=== PATIENT | female | born 1990 | race Hispanic/Latino ===

== ENCOUNTER 2018-02-16 10:04 | Inpatient (IN) | payer MEDICAID, SELFPAY ==
[2018-02-16] MEDS ORDERED: Oxytocin 10 UNITS/ML VIAL ONE (10:16)
[2018-02-16 11:13] VITALS: BMI 33.6
[2018-02-16] MEDS ORDERED: Ondansetron HCl/PF 4 MG/2 ML Vial IVP PRN ×2 (11:16→13:53)
[2018-02-16] MEDS ORDERED: NS / Oxytocin 40 units/1000ml 1,000 ML IV PRN (11:16)
[2018-02-16] MEDS ORDERED: Docusate 100 MG CAP PO PRN (11:16)
[2018-02-16] MEDS ORDERED: Lidocaine 1% (PF) 30 ML VIAL SC PRN (11:16)
[2018-02-16] MEDS ORDERED: Promethazine HCl 25 MG/ML VIAL IM PRN ×2 (11:16→13:53)
[2018-02-16] MEDS ORDERED: Lactated Ringer's 1,000 ML IV SCH (11:16)
[2018-02-16] MEDS ORDERED: Acetaminophen 500 MG TAB PO PRN (11:16)
[2018-02-16 11:23] LABS: Hemoglobin 15.1 g/dL (12.0-16.0); Mean Corpuscular HGB CONC 35.3 g/dL (32.0-36.0); Mean Corpuscular Hemoglobin 32.8 pg (27.0-31.0); Mean Corpuscular Volume 92.9 fL (78.0-98.0); Mean Platelet Volume 7.9 fL (7.4-10.4); Platelet Count 174 thou/uL (130-400); RBC Distribution Width 11.9 % (11.5-14.5); Red Blood Cell (RBC) Count 4.59 mill/uL (4.20-5.40); White Blood Cell (WBC) Count 8.3 thou/uL (4.8-10.8)
[2018-02-16] MEDS ORDERED: Acetaminophen/Codeine 30-300mg Tablet PO SCH (11:45)
[2018-02-16] MEDS ORDERED: Ibuprofen 800 MG TAB PO SCH (11:45)
--- NOTE | 2018-02-16 11:45 | PDOC.FPRHP ---
- History of Present Illness Chief Complaint: LOF History of Present Illness: This is a 27 yo female at 39.2 wks who presents to L&D for a cc of LOF. She states that she lost fluids while sitting on the toilet. She was feeling lower abdominal pressure. Denies SOB, CP, or N/V. - Allergies/Adverse Reactions Allergies Allergy/AdvReac Type Severity Reaction Status Date / Time No Known Allergies Allergy Verified 02/16/18 11:14 - Home Medications Medication Instructions Recorded Confirmed Type No Known 02/16/18 02/16/18 History - History PMHx: PSHx: FHx: Social: - Vital signs BP: [] HR: [] RR: [] Tmax: [] Pox: []% on [] Wt: [] - Physical Exam Constitutional: NAD, awake, alert and oriented, well developed HEENT: normocephalic and atraumatic, MMM Neck: FROM Lungs: no respiratory distress Musculoskeletal: normal structure Skin: no rash/lesions Psychiatric: normal mood and affect, good judgment and insight, intact recent and remote memory Additional comment: Pt. was when first checked. FMR H&P: Results - Labs Result Diagrams: 02/16/18 10:25 Lab results: WBC 8.3 thou/uL (4.8-10.8) 02/16/18 10:25 Hgb 15.1 g/dL (12.0-16.0) 02/16/18 10:25 Hct 42.7 % (36.0-47.0) 02/16/18 10:25 MCV 92.9 fL (78.0-98.0) 02/16/18 10:25 Plt Count 174 thou/uL (130-400) 02/16/18 10:25 FMR H&P: A/P - Problem List (1) Term delivered Current Visit: Yes Status: Acute Code(s): O80 - ENCOUNTER FOR FULL-TERM UNCOMPLICATED DELIVERY - Plan This is a a 27 yo at 39.2 Term -Pt. is currently having contractions and baby's head is we will prepare for a precipitous delivery. We will establish IV access and provide fluids and oxytocin as soon as possible. FMR H&P: Upper Level - Plan Date/Time: 02/16/18 1144 I, [], have evaluated this patient and agree with findings/plan as outlined by international exchange coordinator resident. Pertinent changes/additions are listed here.
[2018-02-16 12:09] LABS: Syphilis Antibody Nonreactive (Nonreactive); Syphilis Antibody Index 0.06 S/CO (<1.00 Non-Reactive)
[2018-02-16 12:10] LABS: Hep B Surf Ag Non-Reactive S/CO (NonReactive)
--- NOTE | 2018-02-16 13:47 | PDOC.OPDEL ---
OB Operative/Delivery Note - Additional Findings/Plan Compilations/Other Findings: Delivering Physician: Dr. Lashawn Kaur, Dr. Tawanda Olvera Attending: Dr. Lashawn Kaur Procedure: Spontaneous Vaginal Delivery Anesthesia: none QBL: 84 ml Pre-op Diagnosis: 1. Term intrauterine in labor Post-op Diagnosis: 1. Term intrauterine , delivered Indications: A 27y/o female presents in active labor, head Delivery Note: This is 27yo F @ 39.2wks who delivered a viable M infant at 10:19. Following an uneventful antepartum course, a vigorous male was delivered over an intact perineum. Anterior Shoulder and then remainder of the body delivered. There was a reducible, loose nuchal cord x 1. The head was held down and mouth and nares were bulb suctioned. Cord clamped and cut and cord blood collected. Placenta delivered intact Pedroza presentation with a 3 vessel cord noted. Fundal massage was performed and the fundus was firm. The cervix and vagina were inspected and found to be free of lacerations. Infant went to nursery in good condition for routine care. Apgars were 8/9 at 1 & 5 minutes, respectively. Patient tolerated delivery well and went to after routine recovery/care. <Tawanda Olvera - Last Filed: 02/16/18 17:07> Attending Addendum - Attending Addendum Date/Time: 02/16/18 182 I was present and scrubbed for the uncomplicated, precipitous delivery of the vigorous male infant in cephalic presentation with a single, loose nuchal cord. Placenta delivered intact. Mom and baby doing well. <Lashawn Webber - Last Filed: 02/16/18 18:27>
[2018-02-16] MEDS ORDERED: Milk Of Magnesia 30 ML UDCUP PO PRN (13:53)
[2018-02-16] MEDS ORDERED: Preparation H Ointment 28 GM TUBE PR PRN (13:53)
[2018-02-16] MEDS ORDERED: Lanolin Ointment 7 GM TUBE TOP PRN (13:53)
[2018-02-16] MEDS ORDERED: NS / Oxytocin 40 units/1000ml 1,000 ML IV SCH (13:53)
[2018-02-16] MEDS ORDERED: Benzocaine/Menthol 20-0.5% 60 ML CAN TOP PRN (13:53)
[2018-02-16] MEDS ORDERED: Acetaminophen/Codeine 30-300mg Tablet PO PRN (13:53)
[2018-02-16] MEDS ORDERED: Adacel (T-DAP) 0.5 ML VIAL IM ONE (13:53)
[2018-02-16] MEDS ORDERED: Bisacodyl 10 MG SUPP PR PRN (13:53)
[2018-02-16] MEDS: Ibuprofen 800 MG TAB PO SCH ×2 (14:58→21:27)
[2018-02-16] MEDS: Ferrous Sulfate 325 MG TAB PO SCH (14:59)
--- NOTE | 2018-02-16 17:15 | PDOC.FPROB ---
FMR OB H&P: HPI - History of Present Illness Chief Complaint: Contractions History of Present Illness: This is a 27 yo female at 39.2 wks who presents to L&D for a cc of LOF. She states that she lost fluids while sitting on the toilet. She was feeling lower abdominal pressure. Denies SOB, CP, or N/V. FMR OB H&P: Current - Care : 3 Para: 1102 Gestational age: 39.2 Due date: 02/21/2018 Dating Criteria: 13.1 Course/Complications: None - OB Labs Blood type: A RH: positive Antibody Screen: negative HIV: negative RPR: negative HepBsAg: negative Rubella: immune Gonorrhea: negative Chlamydia: negative 1 hour gtt: 87 GBS: negative FMR OB H&P: History - OB History OB History: 1st baby delivered at 26wks in [place] 2nd baby delivered at 39 wks in [place] Both living - Social History Social History: Denies D/A/T FMR OB H&P: Medications - Current Home Medications: Medication Instructions Recorded Confirmed Type No Known 02/16/18 02/16/18 History Allergies/Adverse Reactions: Allergies Allergy/AdvReac Type Severity Reaction Status Date / Time No Known Allergies Allergy Verified 02/16/18 11:14 FMR OB H&P: ROS - Review of Systems General: reports: other (Unable to obtain ROS or majority of PE 2/2 to pt. delivering precipitously.) FMR OB H&P: Vital Signs - Maternal Vital signs: Vital Signs - First Documented Temp Pulse Resp BP 98.8 F 73 18 144/79 H 02/16/18 10:48 02/16/18 10:48 02/16/18 10:48 02/16/18 10:48 FMR OB H&P: Physical Exam - Physical Exam General: NAD, awake, alert and oriented HEENT: normocephalic and atraumatic, MMM Neck: FROM General: no respiratory distress Abdomen: soft, gravid FMR OB H&P: Results - Labs Lab results: Laboratory Results - last 24 hr 02/16/18 02/16/18 02/16/18 10:25 10:25 10:25 WBC RBC Hgb Hct MCV MCH MCHC RDW Plt Count MPV Syphilis IgG/IgM Ab Nonreactive Hep Bs Antigen Non-Reactive Blood Type A POSITIVE Antibody Screen NEGATIVE 02/16/18 10:25 WBC 8.3 RBC 4.59 Hgb 15.1 Hct 42.7 MCV 92.9 MCH 32.8 H MCHC 35.3 RDW 11.9 Plt Count 174 MPV 7.9 Syphilis IgG/IgM Ab Hep Bs Antigen Blood Type Antibody Screen FMR OB H&P: A/P - Problem List (1) Term delivered Current Visit: Yes Status: Acute Code(s): O80 - ENCOUNTER FOR FULL-TERM UNCOMPLICATED DELIVERY Assessment and Plan: This is a a 27 yo at 39.2 Term -Pt. is currently having contractions and baby's head is we will prepare for a precipitous delivery. We will establish IV access and provide fluids and oxytocin as soon as possible. Discussion: Date/Time: 02/16/181712 This H&P was discussed with Dr. Webber who agree with the above documentation and plan. Attending Addendum - Attending Addendum Date/Time: 02/16/181828 I personally evaluated the patient and discussed the management with Dr. Olvera. I agree with the History, Examination, Assessment and Plan documented above. 39 + weeks in active labor. SVE /3. Anticipate .
[2018-02-16] MEDS: Docusate Calcium (SURFAK) 240 MG CAP PO SCH (21:27)
[2018-02-17] MEDS: Ibuprofen 800 MG TAB PO SCH ×2 (06:03→13:35)
--- NOTE | 2018-02-17 07:46 | PDOC.PP ---
Post Progress Note Post Day #: 1 Subjective: Pt. states she is doing well, breast feeding, and resting well. Denies N/V, cp, or SOB. PO intake tolerated: yes Flatus: yes Ambulation: yes Vital Signs (12 hours) Temp Pulse Resp BP 02/17/18 04:00 98.3 F 70 18 132/68 02/17/18 00:00 98.3 F 70 18 02/16/18 20:00 98.3 F 72 18 131/71 Weight Weight 97.522 kg - Physical Examination General: NAD Cardiovascular: no m/r/g, RRR Respiratory: clear to auscultation bilaterally, non-labored breathing Abdominal: + bowel sounds, lochia, no distention, appropriately TTP Fundus firm & at: umbilicus Extremities: negative homans (B) Neurological: no gross focal deficits Psychiatric: A&Ox3, normal affect Result Diagrams: 02/16/18 10:25 Additional Labs: Post Labs Blood Type A POSITIVE 02/16/18 10:25 Hep Bs Antigen Non-Reactive S/CO (NonReactive) 02/16/18 10:25 (1) Term delivered Code(s): O80 - ENCOUNTER FOR FULL-TERM UNCOMPLICATED DELIVERY Status: Acute - Assessment/Plan This is a 27 yo G3 now P2103 who delivered at 39.2wks Term delivery via -Routine care. Encourage and bonding with infant. We will fill out emergency medicaid prior to her discharge. QBL was 84. Disposition: Likely home today, pt. is agreeable with this plan. <Tawanda Olvera - Last Filed: 02/17/18 07:45> Weight Weight 215 lb Result Diagrams: 02/16/18 10:25 Additional Labs: Post Labs Blood Type A POSITIVE 02/16/18 10:25 Hep Bs Antigen Non-Reactive S/CO (NonReactive) 02/16/18 10:25 (1) Term delivered Code(s): O80 - ENCOUNTER FOR FULL-TERM UNCOMPLICATED DELIVERY Status: Acute <Lashawn Webber - Last Filed: 02/18/18 10:57> Attending Addendum - Attending Addendum Date/Time: 02/18/18 1057 I personally evaluated the patient and discussed the management with Dr. Olvera. I agree with the History, Examination, Assessment and Plan documented above. <Lashawn Webber - Last Filed: 02/18/18 10:57>
[2018-02-17] MEDS: Docusate Calcium (SURFAK) 240 MG CAP PO SCH (08:09)
[2018-02-17] MEDS: Ferrous Sulfate 325 MG TAB PO SCH ×2 (08:12→16:38)
[2018-02-17 08:25] VITALS: BP 120/61; TEMP 98.4
== END 2018-02-17 18:15 | disposition home or self-care (01) | DRG 775 ==
LOC: L&D/OP 10:04 → L&D 10:42 → 3SW 13:05
PROVIDERS: ADMIT Obstetrics & Gynecology; ATTEND Obstetrics & Gynecology
PROC: 10E0XZZ Delivery of Products of Conception, External Approach (ICD-10-PCS; principal; 2018-02-16)
DX: O69.81X0 Labor and delivery complicated by cord around neck, without compression, not applicable or unspecified (principal); Z3A.39 39 weeks gestation of pregnancy; Z37.0 Single live birth
CPT/HCPCS: 85027; 86780; 86850; 86900; 86901; 87340; 99285; J2590

== ENCOUNTER 2025-03-31 14:58 | Outpatient (CLI) | payer OTHER | END 2025-03-31 14:59 | disposition home or self-care (01) | LOC: ULT 14:58 | PROVIDERS: ATTEND Family Medicine | DX: Z34.82 Encounter for supervision of other normal pregnancy, second trimester (principal); Z3A.22 22 weeks gestation of pregnancy | CPT/HCPCS: 76805 ==